=== PATIENT | female | born 1965 | race Caucasian/White ===

== ENCOUNTER 2018-05-26 15:33 | Emergency (ER) | payer MEDICAID ==
[~2018-05-26] VITALS: Ht 165.1 cm; Wt 82.0 kg
[2018-05-26 15:37] VITALS: BP 128/88
[2018-05-26] MEDS ORDERED: KETOROLAC 30 MG/1 ML IM ONE (16:00)
[2018-05-26] MEDS ORDERED: KETOROLAC 30 MG/1 ML ONE (16:25)
== END 2018-05-26 16:53 | disposition home or self-care (01) ==
LOC: ED 16:35
DX: S83.92XA Sprain of unspecified site of left knee, initial encounter (principal); W22.09XA Striking against other stationary object, initial encounter; Y93.89 Activity, other specified; Y92.89 Other specified places as the place of occurrence of the external cause; Y99.8 Other external cause status
CPT/HCPCS: 29505; 73564; 96372; 99283; J1885